=== PATIENT | female | born 2000 | race Caucasian/White ===

== ENCOUNTER 2020-02-24 04:37 | Emergency (ER) | payer SELFPAY ==
[~2020-02-24] VITALS: Ht 162.6 cm; Wt 56.8 kg
[2020-02-24 05:36] VITALS: BP 112/76; PULSE 98; TEMP 97.8
== END 2020-02-24 05:33 | disposition home or self-care (01) ==
LOC: COL.ER 04:37
DX: H53.8 Other visual disturbances (principal)